=== PATIENT | male | born 1990 | race Two or more races ===

== ENCOUNTER 2016-05-02 00:25 | Emergency (ER) | payer OTHER ==
[~2016-05-02] VITALS: Ht 182.9 cm; Wt 104.3 kg
[~2016-05-02 00:25] MED LIST: AMOXICILLIN500 MG ORAL; CORTISPORIN EAR10 ML OTIC; CYCLOBENZAPRINE10 MG ORAL; DICLOFENAC SODI50 MG ORAL; IBUPROFEN600 MG ORAL; NKM
--- NOTE | 2016-05-02 00:45 | Emergency Room Report ---
History of Present Illness General Chief Complaint: Lower Back Pain or Injury Source: Patient Present Illness HPI Patient is a 25-year-old male who presented after having increased right-sided low back pain. Patient reported having pain acute onset after a fall from standing. The patient reports slipping on a wet floor. He denied loss of consciousness. He reported having pain to his low back he denies any numbness or weakness to his extremities. He denies bowel or bladder dysfunction. Allergies: Coded Allergies: No Known Allergies (Unverified , 12/18/13) Patient History Past Medical History: see triage record Reviewed Nursing Documentation: PMH: Agreed, PSxH: Agreed Nursing Documentation-PM Past Medical History: No Stated History Review of Systems All Other Systems: negative except mentioned in HPI Physical Exam Vital Signs Date Time Temp Pulse Resp B/P Pulse Ox O2 Delivery O2 Flow Rate FiO2 05/02/16 00:30 98.2 64 16 121/68 96 General Appearance: well appearing, no apparent distress, alert, GCS 15 Head: normocephalic, atraumatic ENT: hearing grossly normal, normal voice Neck: full range of motion, supple Respiratory: normal inspection, chest non-tender, no respiratory distress, speaking full sentences Gastrointestinal: normal inspection, normal bowel sounds, non tender, soft Musculoskeletal: normal inspection, back normal, no calf tenderness, other - tenderness right paraspinous area Neurologic: normal inspection, alert, oriented x3, responsive, oil and gas superintendent III-XII nml as tested, motor strength/tone normal, normal gait Psychiatric: mood/affect normal Skin: normal inspection, normal color, no rash, warm/dry Medical Decision Making Diagnostic Impression: Primary Impression: Low back pain Additional Impression: Fall ER Course Patient presented for low back pain.Differential diagnosis included but was not limited to herniated disc, cauda equina syndrome, abdominal aortic aneurysm, perforated ulcer, spinal epidural abscess, spinal stenosis, lumbar fracture, metastatic lesion, pyelonephritis. Patient's benign exam and does not appear to require any further imaging or laboratory testing at this time. X-ray imaging was ordered of the patient's recent trauma. Patient states that he has not had prior significant back injuries. Patient given ibuprofen for pain.The patient is advised to return for increased pain numbness or weakness. Patient was return for bowel or bladder dysfunction. Last Vital Signs Date Time Temp Pulse Resp B/P Pulse Ox O2 Delivery O2 Flow Rate FiO2 05/02/16 00:30 98.2 64 16 121/68 96 Status: improved Disposition: HOME, SELF-CARE Condition: Stable Scripts Ibuprofen* (MOTRIN*) 600 Mg Tablet 600 MG ORAL Q8H Y for For Pain, #30 TAB Prov: Laron Orta 05/02/16 Laron Orta May 02, 2016 00:45
[2016-05-02] MEDS ORDERED: IBUPROFEN600 MG ORAL (00:56)
[2016-05-02 01:23] VITALS: BP 118/68
[2016-05-02 01:25] VITALS: BP 118/68
--- NOTE | 2016-05-04 11:05 | Diagnostic Imaging Report ---
Indication: Back pain Technique: Lumbar spine 3 views Comparison: None Findings: There is no acute fracture. Lumbar alignment is within normal limits. There is anterior wedging of the T11 and T12 vertebral bodies. Bone mineralization is normal. Disc heights are grossly preserved. Impression: No acute osseous abnormality. Further evaluation recommended as indicated.
== END 2016-05-02 01:26 | disposition home or self-care (01) ==
LOC: EMR 00:41
DX: M54.5 Low back pain (principal); W19.XXXA Unspecified fall, initial encounter; Y92.9 Unspecified place or not applicable
CPT/HCPCS: 72020; 99283

== ENCOUNTER 2017-07-19 14:30 | Emergency (ER) | payer OTHER ==
[~2017-07-19] VITALS: Ht 182.9 cm; Wt 106.6 kg
[2017-07-19 14:57] VITALS: BP 128/80
--- NOTE | 2017-07-19 15:03 | Emergency Room Report ---
History of Present Illness General Chief Complaint: Abdominal Pain Source: Patient Present Illness HPI 26-year-old male patient presents ER complaining of pelvic and abdominal pain. Patient reports pain is been present for 4 days. Patient denies diarrhea, constipation, blood in stool. Patient reports no recent sexual contact. Patient denies hematuria. Patient reports intermittent dysuria during this time , denies symptoms acutely, denies hematuria. Patient denies testicular pain or swelling, penile discharge or penile pain. Patient denies back or flank pain. Patient denies vomiting, nausea. Patient denies fever, chest pain, shortness of breath. Allergies: Coded Allergies: No Known Allergies (Unverified , 12/18/13) Patient History Past Medical History: see triage record Reviewed Nursing Documentation: PMH: Agreed; PSxH: Agreed Nursing Documentation-PMH Past Medical History: No Stated History Review of Systems All Other Systems: negative except mentioned in HPI Physical Exam Vital Signs Date Time Temp Pulse Resp B/P (MAP) Pulse Ox O2 Delivery O2 Flow Rate FiO2 07/19/17 14:47 98.1 60 18 128/80 100 Room Air 98.1 Sp02 EP Interpretation: reviewed General Appearance: well appearing, no apparent distress, alert, GCS 15, non- toxic Head: normocephalic, atraumatic Respiratory: lungs clear, normal breath sounds, no rhonchi, no respiratory distress, no accessory muscle use, no wheezing, speaking full sentences Cardiovascular #1: regular rate, rhythm, no edema Gastrointestinal: soft, no mass, non-distended, no guarding, no rebound, tenderness - RLQ, other - negative Rovsing, negative heel tap Genitourinary: no CVA tenderness, penis normal - circumsized, scrotum normal, other - negative hernia Musculoskeletal: back normal, digits/nails normal, gait/station normal, normal range of motion, non-tender Neurologic: alert, oriented x3, responsive, motor strength/tone normal, sensory intact Skin: no rash Lymphatic: no adenopathy Medical Decision Making PA Attestation Dr. Mon is my supervising Physician whom patient management has been discussed with. Diagnostic Impression: Primary Impression: Renal cyst Additional Impressions: Kidney stone on left side Abdominal pain ER Course Pt presents to ED c/o urinary symptoms. DDX considered but are not limited to cystitis, pyelonephritis, appendicitis, constipation. Low suspicion for appendicitis, will order labs and imaging to rule out underlying pathology. VITAL SIGNS are WNL, patient is afebrile. Ordered labs, UA, imaging, medication. ER COURSE CBC and CMP unremarkable, no elevation in WBC or LFTs UA results show no nitrites, no leukocyte esterase, does not indicate UTI, does not need abx treatment. If concern for STI, followup with STI clinic for testing and treatment. Denies STI concern. CT Abdomen shows left kidney stone, renal cyst, splenic cyst or hemangioma. Informed patient may be cause of symptoms. Informed patient need to followup outpatient for further treatment. Instructed patient to followup with PCP and request referral for outpatient imaging per official radiology report. Informed patient pain may be related to constipation, instructed patient to drink plenty of fluids, high fiber diet. ER precautions given, return to ER if symptoms worsen. Take Tylenol for pain symptoms. Patient is resting comfortably in chair, nontoxic appearing, in no acute distress. Patient states they feel better and is ready to go home. DISCHARGE -Rx provided for Tylenol Patient is stable for discharge. Patient resting comfortably, in no acute distress, nontoxic appearing, talking without difficulty. Will provide with patient care instructions and any necessary prescriptions. Patient understands and agrees to treatment plan. Patient encouraged to drink plenty of fluids. Patient to take medication as instructed. Care plan and follow-up instructions provided. Patient questions asked and answered. Reports understanding and agreement to treatment plan. Patient instructed to follow-up with primary care provider in 3 - 5 days. ER precautions given. Patient instructed to return to ER immediately for any new or worsening of symptoms. Including but not limited to fever, abdominal pain , intractable vomiting. - Please note that this Emergency Department Report was dictated using [employer] sewing machine operator technology software, occasionally this can lead to erroneous entry secondary to interpretation by the dictation equipment. Labs Test 07/19/17 15:05 07/19/17 16:11 Urine Color Pale yellow Urine Appearance Clear Urine pH 6 (4.5-8.0) Urine Specific [place] 1.010 (1.005-1.035) Urine Protein Negative (NEGATIVE) Urine Glucose (UA) Negative (NEGATIVE) Urine Ketones Negative (NEGATIVE) Urine Occult Blood Negative (NEGATIVE) Urine Nitrite Negative (NEGATIVE) Urine Bilirubin Negative (NEGATIVE) Urine Urobilinogen Normal MG/DL (0.0-1.0) Urine Leukocyte Esterase Negative (NEGATIVE) White Blood Count 7.3 K/UL (4.8-10.8) Red Blood Count 5.09 M/UL (4.70-6.10) Hemoglobin 16.8 G/DL (14.2-18.0) Hematocrit 45.5 % (42.0-52.0) Mean Corpuscular Volume 89 FL (80-99) Mean Corpuscular Hemoglobin 32.9 PG (27.0-31.0) Mean Corpuscular Hemoglobin Concent 36.8 G/DL (32.0-36.0) Red Cell Distribution Width 11.0 % (11.6-14.8) Platelet Count 255 K/UL (150-450) Mean Platelet Volume 7.4 FL (6.5-10.1) Neutrophils (%) (Auto) 55.3 % (45.0-75.0) Lymphocytes (%) (Auto) 34.2 % (20.0-45.0) Monocytes (%) (Auto) 8.1 % (1.0-10.0) Eosinophils (%) (Auto) 1.3 % (0.0-3.0) Basophils (%) (Auto) 1.1 % (0.0-2.0) Sodium Level 140 MMOL/L (136-145) Potassium Level 3.7 MMOL/L (3.5-5.1) Chloride Level 103 MMOL/L (98-107) Carbon Dioxide Level 27 MMOL/L (21-32) Anion Gap 10 mmol/L (5-15) Blood Urea Nitrogen 13 mg/dL (7-18) Creatinine 1.0 MG/DL (0.55-1.30) Estimat Glomerular Filtration Rate > 60 mL/min (>60) Glucose Level 100 MG/DL (74-106) Calcium Level 9.4 MG/DL (8.5-10.1) Total Bilirubin 0.4 MG/DL (0.2-1.0) Aspartate Amino Transf (AST/SGOT) 18 U/L (15-37) Alanine Aminotransferase (ALT/SGPT) 45 U/L (12-78) Alkaline Phosphatase 94 U/L (46-116) Total Protein 8.4 G/DL (6.4-8.2) Albumin 4.5 G/DL (3.4-5.0) Globulin 3.9 g/dL Albumin/Globulin Ratio 1.2 (1.0-2.7) Lipase 164 U/L (73-393) CT/MRI/US Diagnostic Results CT/MRI/US Diagnostic Results : Imaging Test Ordered: CT abdomen Impression * 3 mm stone in the lower pole of the left kidney. No evidence of hydronephrosis bilaterally. * Underdistention versus thickening of the bladder wall. Correlate with urinalysis to exclude cystitis. * Bilateral likely simple renal cysts and probable splenic cyst or hemangioma. Recommend further characterization with abdominal ultrasound on a nonemergent basis. Last Vital Signs Date Time Temp Pulse Resp B/P (MAP) Pulse Ox O2 Delivery O2 Flow Rate FiO2 07/19/17 14:47 98.1 60 18 128/80 100 Room Air 98.1 Disposition: HOME, SELF-CARE Condition: Stable Scripts Acetaminophen* (TYLENOL EXTRA STRENGTH*) 500 Mg Tablet 500 MG ORAL Q8H PRN for Prn Headache/Temp > 101, #30 TAB 0 Refills Prov: Marty Casillas 07/19/17 Patient Instructions: Abdominal Pain, Adult Additional Instructions: Followup with primary care provider in 3 -5 days. Request referral for outpatient US imaging. Request referral to GI specialist. Take medications as directed. Patient questions asked and answered. ER precautions given, patient instructed to return to ER immediately for any new or worsening of symptoms. Marty Casillas Jul 19, 2017 15:03
[2017-07-19] MEDS ORDERED: Acetaminophen 500mg (ES) tab ORAL ONE (15:15)
[2017-07-19 15:24] LABS: APPEARANCE,URINE CLEAR; BILIRUBIN, URINE NEGATIVE (NEGATIVE); COLOR,URINE PALE YELLOW; GLUCOSE, URINE (UA) NEGATIVE (NEGATIVE); KETONES,URINE NEGATIVE (NEGATIVE); LEUKOCYTE ESTERASE ,URINE NEGATIVE (NEGATIVE); NITRITE,URINE NEGATIVE (NEGATIVE); PH,URINE 6 (4.5-8.0); PROTEIN,URINE NEGATIVE (NEGATIVE); UROBILINOGEN,URINE NORMAL MG/DL (0.0-1.0)
[2017-07-19 16:36] LABS: BASOPHILS % (AUTO) 1.1 % (0.0-2.0); EOSINOPHILS % (AUTO) 1.3 % (0.0-3.0); HEMATOCRIT 45.5 % (42.0-52.0); HEMOGLOBIN 16.8 G/DL (14.2-18.0); LYMPHOCYTES % (AUTO) 34.2 % (20.0-45.0); MEAN CORPUSCULAR VOLUME 89 FL (80-99); MONOCYTES % (AUTO) 8.1 % (1.0-10.0); NEUTROPHILS % (AUTO) 55.3 % (45.0-75.0); PLATELET COUNT 255 K/UL (150-450); RED BLOOD COUNT 5.09 M/UL (4.70-6.10); WHITE BLOOD COUNT 7.3 K/UL (4.8-10.8)
[2017-07-19 16:42] LABS: ANION GAP 10 mmol/L (5-15); BLOOD UREA NITROGEN 13 mg/dL (7-18); CALCIUM 9.4 MG/DL (8.5-10.1); CARBON DIOXIDE 27 MMOL/L (21-32); CHLORIDE 103 MMOL/L (98-107); POTASSIUM 3.7 MMOL/L (3.5-5.1); SODIUM 140 MMOL/L (136-145)
--- NOTE | 2017-07-19 16:46 | Diagnostic Imaging Report ---
Indication: Trauma pain Technique: CT of the abdomen and pelvis utilizing automated exposure control with intravenous contrast. Venous scanning performed. CT dose: Total DLP 1197.7 mGycm; CTDI vol 19.07 mGy Comparison: None Findings: Evaluation of vascular structures and the abdominal and pelvic viscera is limited without the use of intravenous and oral contrast. Within these limitations the following observations are made: Minimal dependent atelectasis noted in the posterior lower lobes. Heart size within normal limits. No pericardial effusion. Noncontrast evaluation of the liver, gallbladder, adrenal glands and pancreas is grossly unremarkable. There is a low-attenuation lesion in the spleen which is too small to fully characterize but may represent a cyst or hemangioma. Spleen is otherwise unremarkable. There is a 1.8 cm simple appearing cyst in the upper pole of the right kidney. A similar appearing lesion is noted in the midpole of the left kidney. There is a 3 mm nonobstructing stone in the lower pole of the left kidney (series 3 image #65). There is no evidence of hydronephrosis bilaterally. The bladder is decompressed, limiting its evaluation. Prostate is normal in size. There is no free intraperitoneal air. There is no ascites. There is no evidence of bowel obstruction or appreciable bowel wall thickening/inflammation however evaluation is limited. The appendix is normal. There is no pathologically enlarged lymphadenopathy. Abdominal aorta is normal in caliber. No acute osseous abnormality is seen. IMPRESSION: Exam without intravenous and oral contrast. Within these limitations: * 3 mm stone in the lower pole of the left kidney. No evidence of hydronephrosis bilaterally. * Underdistention versus thickening of the bladder wall. Correlate with urinalysis to exclude cystitis. * Bilateral likely simple renal cysts and probable splenic cyst or hemangioma. Recommend further characterization with abdominal ultrasound on a nonemergent basis. The CT scanner at [facility] is accredited by the [employer] and the scans are performed using protocols designed to limit radiation exposure to as low as reasonably achievable to attain images of sufficient resolution adequate for diagnostic evaluation.
[2017-07-19 16:47] LABS: ALANINE AMINOTRANSFERASE 45 U/L (12-78); ALBUMIN 4.5 G/DL (3.4-5.0); ALBUMIN/GLOBULIN RATIO 1.2 (1.0-2.7); ALKALINE PHOSPHATASE 94 U/L (46-116); ASPARTATE AMINO TRANSFERASE 18 U/L (15-37); BILIRUBIN,TOTAL 0.4 MG/DL (0.2-1.0)
[2017-07-19] MEDS ORDERED: TYLENOL EXTRA500 MG ORAL (17:19)
[2017-07-19 17:38] VITALS: BP 134/84
== END 2017-07-19 17:40 | disposition home or self-care (01) ==
LOC: EMR 15:20
DX: N28.1 Cyst of kidney, acquired (principal); N20.0 Calculus of kidney
CPT/HCPCS: 36415; 74176; 80053; 81003; 83690; 85025; 99284

== ENCOUNTER 2017-09-20 10:36 | Emergency (ER) | payer OTHER ==
[~2017-09-20] VITALS: Ht 180.3 cm; Wt 106.6 kg
[~2017-09-20 10:36] MED LIST changes: +TYLENOL EXTRA500 MG ORAL
[2017-09-20 10:55] VITALS: BP 126/83
[2017-09-20] MEDS ORDERED: Lidocaine 2% Visc 15ml soln ORAL ONE (11:00)
[2017-09-20] MEDS ORDERED: Dicyclomine HCl 10mg/5ml oral soln ORAL ONE (11:00)
[2017-09-20] MEDS ORDERED: Mylanta II UD 30ml ORAL ONE (11:00)
[2017-09-20] MEDS ORDERED: Gastrograffin 30ml ORAL PRN (11:00)
[2017-09-20] MEDS ORDERED: Isovue-300 100ml vial INJ PRN (11:00)
[2017-09-20 11:35] LABS: APPEARANCE,URINE CLEAR; BASOPHILS % (AUTO) 1.3 % (0.0-2.0); BILIRUBIN, URINE NEGATIVE (NEGATIVE); COLOR,URINE PALE YELLOW; EOSINOPHILS % (AUTO) 1.9 % (0.0-3.0); GLUCOSE, URINE (UA) NEGATIVE (NEGATIVE); HEMATOCRIT 49.6 % (42.0-52.0); HEMOGLOBIN 17.4 G/DL (14.2-18.0); KETONES,URINE NEGATIVE (NEGATIVE); LEUKOCYTE ESTERASE ,URINE NEGATIVE (NEGATIVE); LYMPHOCYTES % (AUTO) 34.2 % (20.0-45.0); MEAN CORPUSCULAR VOLUME 90 FL (80-99); NEUTROPHILS % (AUTO) 52.6 % (45.0-75.0); NITRITE,URINE NEGATIVE (NEGATIVE); PH,URINE 8 (4.5-8.0); PLATELET COUNT 270 K/UL (150-450); PROTEIN,URINE NEGATIVE (NEGATIVE); RED BLOOD COUNT 5.51 M/UL (4.70-6.10); RED CELL DISTRIBUTION WIDTH 10.3 % (11.6-14.8); UROBILINOGEN,URINE NORMAL MG/DL (0.0-1.0); WHITE BLOOD COUNT 6.4 K/UL (4.8-10.8)
[2017-09-20 11:52] LABS: ANION GAP 6 mmol/L (5-15); BLOOD UREA NITROGEN 12 mg/dL (7-18); CALCIUM 9.4 MG/DL (8.5-10.1); CARBON DIOXIDE 29 MMOL/L (21-32); CHLORIDE 103 MMOL/L (98-107); POTASSIUM 3.7 MMOL/L (3.5-5.1); SODIUM 138 MMOL/L (136-145)
[2017-09-20 11:58] LABS: ALANINE AMINOTRANSFERASE 40 U/L (12-78); ALBUMIN 4.2 G/DL (3.4-5.0); ALBUMIN/GLOBULIN RATIO 1.1 (1.0-2.7); ALKALINE PHOSPHATASE 73 U/L (46-116); ASPARTATE AMINO TRANSFERASE 23 U/L (15-37); BILIRUBIN,TOTAL 0.4 MG/DL (0.2-1.0)
[2017-09-20 12:28] VITALS: BP 124/74
[2017-09-20 14:25] VITALS: BP 129/82
--- NOTE | 2017-09-20 14:58 | Diagnostic Imaging Report ---
Indication: Abdominal pain Technique: Continuous helical transaxial imaging of the abdomen and pelvis was obtained from the lung bases to the pubic symphysis during intravenous contrast administration. Coronal 2-D reformats were also obtained. Study obtained in a Siemens sensation [address] Automatic Exposure Control was utilized. Total Dose length Product (DLP): 1038.[address] Dose Index Volume (CTDIvol): 18.4 mGy Comparison: None Findings: The lung bases are clear. The liver appears slightly hypodense consistent with fatty infiltration. Gallbladder is unremarkable. Spleen is unremarkable. Pancreas is unremarkable. There are bilateral renal cysts. Small nonobstructive stone in the lower pole left kidney again noted unchanged. There is no hydronephrosis. Appendix is normal. No free fluid or free air identified. Urinary bladder is unremarkable. There is no evidence of bowel obstruction. IMPRESSION: Tiny nonobstructive stone in the lower pole left kidney again noted. Mild fatty liver. Normal appendix Bilateral renal cysts The CT scanner at [facility] is accredited by the [employer] and the scans are performed using dose optimization techniques as appropriate to a performed exam including Automatic Exposure control.
[2017-09-20 15:05] VITALS: BP 124/74
[2017-09-20] MEDS ORDERED: DICYCLOMINE HCL10 MG PO (15:05)
--- NOTE | 2017-09-23 05:54 | Emergency Room Report ---
History of Present Illness General Chief Complaint: Abdominal Pain Source: Patient Present Illness HPI Patient is a 27-year-old male who presented after increased right lower abdominal pain. Patient gradual onset of symptoms. He reported having the symptoms for several weeks. He states that this had gotten somewhat worse. Patient reports intermittently the drinking alcohol. He denies any fever. He reports having increased sharp pain. He had some associated nausea intermittently. He denies any vomiting. He has any black or bloody stools. Patient had been told by his doctor that he may have diverticulitis. He reports having some increased frequency of urination. Allergies: Coded Allergies: No Known Allergies (Unverified , 12/18/13) Patient History Past Medical History: see triage record Reviewed Nursing Documentation: PMH: Agreed; PSxH: Agreed Nursing Documentation-PMH Past Medical History: No Stated History Review of Systems All Other Systems: negative except mentioned in HPI Physical Exam Vital Signs Date Time Temp Pulse Resp B/P (MAP) Pulse Ox O2 Delivery O2 Flow Rate FiO2 09/20/17 10:41 98.2 68 18 126/83 98 Room Air 98.2 Sp02 EP Interpretation: reviewed, normal General Appearance: normal inspection, well appearing, no apparent distress, alert, GCS 15 Head: atraumatic ENT: normal ENT inspection, hearing grossly normal, normal voice Neck: normal inspection, full range of motion, supple, no bony tend Respiratory: normal inspection, lungs clear, normal breath sounds, no respiratory distress, no retraction, no wheezing Cardiovascular #1: regular rate, rhythm, no edema Gastrointestinal: normal inspection, normal bowel sounds, non tender, soft, no guarding, no hernia Genitourinary: no CVA tenderness Musculoskeletal: normal inspection, back normal, normal range of motion Neurologic: normal inspection, alert, responsive, speech normal Psychiatric: normal inspection, judgement/insight normal, mood/affect normal Skin: normal inspection, normal color, no rash Medical Decision Making Diagnostic Impression: Primary Impression: Abdominal pain ER Course Patient presented for abdominal pain. Differential diagnoses included ischemic bowel, appendicitis, perforated viscus, abdominal aortic aneurysm, inferior myocardial infarction, viral gastroenteritis Because of complexity of patient's case laboratory testing and imaging studies were ordered. CT the abdomen and pelvis read by radiology showed Tiny nonobstructive stone in the lower pole left kidney again noted. Mild fatty liver. Normal appendix Bilateral renal cysts The patient was advised dietary modification. He is advised to return if he had any worsening pain or persistent vomiting or other concerns. The patient is advised to follow up with primary care doctor in 1-2 days. This report is dictated with [employer] auto damage appraiser software which may occasionally lead to discrepancies related to use of this software. Labs Test 09/20/17 11:10 White Blood Count 6.4 K/UL (4.8-10.8) Red Blood Count 5.51 M/UL (4.70-6.10) Hemoglobin 17.4 G/DL (14.2-18.0) Hematocrit 49.6 % (42.0-52.0) Mean Corpuscular Volume 90 FL (80-99) Mean Corpuscular Hemoglobin 31.6 PG (27.0-31.0) Mean Corpuscular Hemoglobin Concent 35.1 G/DL (32.0-36.0) Red Cell Distribution Width 10.3 % (11.6-14.8) Platelet Count 270 K/UL (150-450) Mean Platelet Volume 7.5 FL (6.5-10.1) Neutrophils (%) (Auto) 52.6 % (45.0-75.0) Lymphocytes (%) (Auto) 34.2 % (20.0-45.0) Monocytes (%) (Auto) 10.0 % (1.0-10.0) Eosinophils (%) (Auto) 1.9 % (0.0-3.0) Basophils (%) (Auto) 1.3 % (0.0-2.0) Prothrombin Time 10.5 SEC (9.30-11.50) Prothromb Time International Ratio 1.0 (0.9-1.1) Activated Partial Thromboplast Time 28 SEC (23-33) Urine Color Pale yellow Urine Appearance Clear Urine pH 8 (4.5-8.0) Urine Specific [place] 1.010 (1.005-1.035) Urine Protein Negative (NEGATIVE) Urine Glucose (UA) Negative (NEGATIVE) Urine Ketones Negative (NEGATIVE) Urine Occult Blood Negative (NEGATIVE) Urine Nitrite Negative (NEGATIVE) Urine Bilirubin Negative (NEGATIVE) Urine Urobilinogen Normal MG/DL (0.0-1.0) Urine Leukocyte Esterase Negative (NEGATIVE) Sodium Level 138 MMOL/L (136-145) Potassium Level 3.7 MMOL/L (3.5-5.1) Chloride Level 103 MMOL/L (98-107) Carbon Dioxide Level 29 MMOL/L (21-32) Anion Gap 6 mmol/L (5-15) Blood Urea Nitrogen 12 mg/dL (7-18) Creatinine 1.0 MG/DL (0.55-1.30) Estimat Glomerular Filtration Rate > 60 mL/min (>60) Glucose Level 104 MG/DL (74-106) Calcium Level 9.4 MG/DL (8.5-10.1) Total Bilirubin 0.4 MG/DL (0.2-1.0) Aspartate Amino Transf (AST/SGOT) 23 U/L (15-37) Alanine Aminotransferase (ALT/SGPT) 40 U/L (12-78) Alkaline Phosphatase 73 U/L (46-116) Total Protein 7.9 G/DL (6.4-8.2) Albumin 4.2 G/DL (3.4-5.0) Globulin 3.7 g/dL Albumin/Globulin Ratio 1.1 (1.0-2.7) Lipase 205 U/L (73-393) Last Vital Signs Date Time Temp Pulse Resp B/P (MAP) Pulse Ox O2 Delivery O2 Flow Rate FiO2 09/20/17 15:05 98.2 84 18 124/74 99 Room Air 98.2 Status: improved Disposition: HOME, SELF-CARE Condition: Stable Scripts Dicyclomine Hcl* (DICYCLOMINE HCL*) 10 Mg Capsule 10 MG PO QID, #30 CAP Prov: Laron Orta MD 09/20/17 Patient Instructions: Abdominal Pain, Adult Laron Orta MD Sep 23, 2017 05:54
== END 2017-09-20 15:05 | disposition home or self-care (01) ==
LOC: EMR 11:16
DX: R10.31 Right lower quadrant pain (principal); N28.1 Cyst of kidney, acquired; K76.0 Fatty (change of) liver, not elsewhere classified
CPT/HCPCS: 36415; 74177; 80053; 81003; 83690; 85025; 85610; 85730; 86850; 86900; 86901; 96374; 99284; J2405; Q9967